=== PATIENT | female | born 1990 | race Caucasian/White ===

== ENCOUNTER 2017-05-06 12:26 | Inpatient (IN) | payer BC ==
[~2017-05-06 12:26] MED LIST: ADVIL200 MG; BENADRYL50 MG PO; DILAUDID2 MG PO; HYDROCODONE-IB1 EAC3 PO; IBUPROFEN600 MG PO; LEVSIN/ANASP0.125 MG PO; MACROBID100 MG PO; MOTRIN600 MG PEG; NORCO 10/325 TA1 TA1 PO; PERCOCET 10/3251 TA1 PO; PERCOCET 5/3251 TA1 PO; PHENERGAN25 M1 PO; PRENATAL COMPLE1 TAB PO; PROCARDIA10 MG PO; PROTONIX40 MG PO; REGLAN10 MG PO; SEASONALE1 BLIST PA PO; VALIUM5 MG PO; VENTOLIN HFA18 GM INH
[2017-05-06] MEDS ORDERED: OXYCONTIN10 MG PO (12:42)
[2017-05-06] MEDS ORDERED: VALIUM5 MG PO (12:43)
[2017-05-06] MEDS ORDERED: VYVANSE40 MG PO (12:44)
--- NOTE | 2017-05-06 12:45 | NUR ---
PT REC'D TO FLOOR VIA WC. [id number]. RATING CURRENT PAIN IN HEAD AND ABD /10. WILL REASSESS. PT COMPLAINING OF NAUSEA. PT SKIN DRY. ASSESSMENT COMPLETED. DR. RALPH'S OFFICE CALLED REGARDING PAIN MEDICATION. BED LOW, CALL LIGTH IN REACH, DENIES NEEDS. CPOC.
--- NOTE | 2017-05-06 13:10 | NUR ---
DR. RALPH PAGED AGAIN REGARDING THE NEED FOR PAIN MEDICATION. MESSAGE LEFT.
[2017-05-06 13:56] LABS: BASOPHILS 0.2 % (0-2); EOSINOPHILS 0.2 % (0-7); HEMATOCRIT 41.6 % (36.0-48.0); HEMOGLOBIN 14.3 g/dL (12-16); MCH 31.8 pg (26.0-34.0); MCHC 34.4 g/dL (31.0-37.0); MCV 92.7 fL (80.0-100.0); MEAN PLATELET VOLUME 10.3 fL (7.4-10.4); MONOCYTES 4.4 % (2-11); NEUTROPHILS 64.2 % (40-80); PLATELET COUNT 202 10x3/uL (130-400); RBC 4.49 10x6/uL (4.00-5.40); RDW 11.6 % (11.5-14.5); WBC 5.7 10x3/uL (4.8-10.8)
--- NOTE | 2017-05-06 14:00 | NUR ---
DR. RALPH PAGED AGAIN REGARDING NEED FOR PAIN MEDICATION. X2 ATTMEPTS TO START IV BY MYSELF, X1 ATTEMPT BY RIKI COLEMAN, AND X1 ATTEMPT BY MARYAN BLOOD. WHO WAS SUCCESSFUL. IV SITED TO [address]
[2017-05-06 14:11] VITALS: BP 116/75; BMI 22.9
[2017-05-06 14:16] LABS: ALKALINE PHOSPHATASE 48 U/L (46-116); ALT (SGPT) 21 U/L (10-68); BILIRUBIN - TOTAL 0.49 mg/dL (0.2-1.3); CALC OSMOLALITY 276 mosm/kg (275-300); CALCIUM 9.4 mg/dL (8.5-10.1); CARBON DIOXIDE 25.5 mmol/L (21.0-32.0); CHLORIDE - SERUM 104 mmol/L (98-107); CREATININE - SERUM 0.7 mg/dL (0.6-1.3); GLUCOSE 77 mg/dL (74-106); POTASSIUM - SERUM 3.8 mmol/L (3.5-5.1); PROTEIN - SERUM 7.2 g/dL (6.4-8.2); SODIUM 140 mmol/L (136-145); UREA NITROGEN 11 mg/dL (7-18); eGFR NON AFRICAN AMERICAN > 90 mL/min (90-120)
--- NOTE | 2017-05-06 14:42 | NUR ---
DR. RALPH PAGED REGARDING NEED FOR PAIN MEDICATION. SPOKE WITH CLEO. STATED, "HE'S PUTTING THE ORDERS IN NOW."
--- NOTE | 2017-05-06 17:21 | NUR ---
MRI CALLED REGARDING WHEN CT SCAN WOULD BE. SPOKE WITH LION. STATED, "SHE IS NEXT IN MY PILE."
[2017-05-06 20:00] VITALS: BP 92/48
--- NOTE | 2017-05-06 20:14 | NUR ---
PATIENT RESTING IN BED WITH C/O 6/10 PAIN. ADMINISTERED MEDS PER ORDERS. ASSESSMENT COMPLETED. COLLECTED URINE SAMPLE. PATIENT DENIES OTHER NEEDS AT THIS TIME. BED IN LOWEST AND CALL LIGHT WITHIN REACH. ENCOURAGED THE PATIENT TO CALL IF SHE HAS NEEDS.
[2017-05-06 21:05] LABS: APPEARANCE CLEAR (CLEAR); BILIRUBIN NEGATIVE (NEGATIVE); COLOR YELLOW (YELLOW); GLUCOSE NEGATIVE (NEGATIVE); KETONE NEGATIVE (NEGATIVE); NITRITE NEGATIVE (NEGATIVE); PROTEIN NEGATIVE (NEGATIVE); UROBILINOGEN NORMAL (NORMAL)
[2017-05-07] VITALS: BP 96/53
--- NOTE | 2017-05-07 03:15 | NUR ---
PERFORMED PT'S LINE DRAW
[2017-05-07 04:00] VITALS: BP 93/54
[2017-05-07 06:06] LABS: BASOPHILS 0.2 % (0-2); EOSINOPHILS 0.2 % (0-7); HEMATOCRIT 39.7 % (36.0-48.0); HEMOGLOBIN 13.4 g/dL (12-16); IMMATURE GRANULOCYTES 0.2 % (0-5); MCH 31.7 pg (26.0-34.0); MCHC 33.8 g/dL (31.0-37.0); MCV 93.9 fL (80.0-100.0); MEAN PLATELET VOLUME 10.2 fL (7.4-10.4); MONOCYTES 7.2 % (2-11); NEUTROPHILS 45.2 % (40-80); PLATELET COUNT 179 10x3/uL (130-400); RBC 4.23 10x6/uL (4.00-5.40); RDW 11.9 % (11.5-14.5)
[2017-05-07 06:40] LABS: ALBUMIN 3.5 g/dL (3.4-5.0); ALKALINE PHOSPHATASE 40 U/L (46-116); ALT (SGPT) 24 U/L (10-68); CALC OSMOLALITY 278 mosm/kg (275-300); CALCIUM 8.8 mg/dL (8.5-10.1); CARBON DIOXIDE 26.8 mmol/L (21.0-32.0); CHLORIDE - SERUM 107 mmol/L (98-107); CREATININE - SERUM 0.8 mg/dL (0.6-1.3); GLUCOSE 72 mg/dL (74-106); POTASSIUM - SERUM 4.1 mmol/L (3.5-5.1); PROTEIN - SERUM 6.3 g/dL (6.4-8.2); SODIUM 141 mmol/L (136-145); UREA NITROGEN 11 mg/dL (7-18); eGFR NON AFRICAN AMERICAN 90 mL/min (90-120)
--- NOTE | 2017-05-07 07:59 | NUR ---
PPT SEEN AND ASSESSED. C/O PAIN TO ABDOMEN WITH DIARRHEA YESTERDAY AND VOMINTING BLOOD YESTERDAY-NONE DURING EVENING SHIFT. NPO CURRENTLY-TO GI LAB PER BED. CONSENTS SIGNED.
[2017-05-07 08:06] LABS: AMYLASE - SERUM 37 U/L (25-115); LIPASE 160 U/L (73-393)
[2017-05-07 08:53] VITALS: BP 105/54
--- NOTE | 2017-05-07 09:13 | NUR ---
PT RETURNED FROM GI LAB. VS 98.1 113/70 73 17 OXYGEN RA 100.. COMPLAINTS OF BELLY HURTING. CALL LIGHT IN REACH
[2017-05-07 12:17] VITALS: BP 99/59
--- NOTE | 2017-05-07 13:16 | NUR ---
PT REQUESTED PAIN MEDICATION AND JELLO AND POPSICLE. PAIN AT 7 BEHIND NECK AND LOWER ABDOMEN, ADMIN PRN PAIN MED. BED IN LOW POSITION CALL LIGHT IN REACH
[2017-05-07 14:54] VITALS: BMI 22.9
--- NOTE | 2017-05-07 15:51 | NUR ---
PT C/O NECK PAIN, STATED THAT NECK STARTS OUT SORE THEN MOVES UPFRONT CAUSING BURNING SENSATION FROM NECK TO TEMPLES CAUSING HEADACHE. PT INQUIRED ON CT OF HEAD AND NECK AREA. STATES DILAUDED HELPS FOR FIRST FEW HOURS AFTERWARDS PAIN COMES RIGHT BACK
[2017-05-07 17:12] VITALS: BP 79/46
--- NOTE | 2017-05-07 17:38 | NUR ---
CHECKED PT BP AFTER 1ST BOLUS, PT BP IS UP TO 105/69. STATED FEELS A LITTER BETTER. PT HAS ONLY VOIDED ONCE TODAY. ENCOURAGED PT TO DRINK MORE. ADMIN PRN PAIN MEDICATION
--- NOTE | 2017-05-07 19:30 | NUR ---
REC'D SITTING UP IN BED. ALERT AND ORIENTED X4. REPORTED PAIN 6/10. WILL ADMIN PAIN MEDS PRESCRIBED. NO DISTRESS NOTED. IS GOING TO HAVE CT SCAN TONIGHT. DENIED NEEDS AT THIS TIME. INSTRUCTED TO CALL IF NEEDED ANYTHING, VERBALIZED UNDERSTANDING. BED LOW, LOCKED, CALL LIGHT IN REACH.
[2017-05-07 20:00] VITALS: BP 102/65
--- NOTE | 2017-05-07 20:00 | NUR ---
PT SITTING UP IN BED. ALERT AND ORIENTED. NO DISTRESS NOTED. CALL LIGHT IN REACH.
--- NOTE | 2017-05-07 22:09 | NUR ---
WENT TO CT REC'D AND 20G TO RIGHT AC. LEFT HAND WAS HALF WAY OUT UNDERNEATH THE TAPE. STARTED COMPLAINING OF SORENESS TO THE LEFT HAND. MOVED FLUIDS OVER TO THE RIGHT AC AND DC'D THE LEFT HAND CATHETER WAS STILL INTACT. WILL CONT TO MONITOR.
[2017-05-08] VITALS: BP 91/57
--- NOTE | 2017-05-08 02:43 | NUR ---
BLOOD PRESSURE WAS 86/49 AT MIDNIGHT VITALS. BOLUSED HER 250ML OF NS AND BROUGHT BP TO 91/59 WILL CONT TO MONITOR.
[2017-05-08 04:00] VITALS: BP 94/53
[2017-05-08 04:53] LABS: HEMATOCRIT 38.1 % (36.0-48.0); HEMOGLOBIN 12.8 g/dL (12-16); MCH 31.6 pg (26.0-34.0); MCHC 33.6 g/dL (31.0-37.0); MCV 94.1 fL (80.0-100.0); MEAN PLATELET VOLUME 10.4 fL (7.4-10.4); PLATELET COUNT 170 10x3/uL (130-400); RBC 4.05 10x6/uL (4.00-5.40); RDW 11.8 % (11.5-14.5); WBC 4.2 10x3/uL (4.8-10.8)
[2017-05-08 05:00] LABS: CALC OSMOLALITY 285 mosm/kg (275-300); CALCIUM 8.3 mg/dL (8.5-10.1); CARBON DIOXIDE 24.9 mmol/L (21.0-32.0); CHLORIDE - SERUM 113 mmol/L (98-107); CREATININE - SERUM 0.8 mg/dL (0.6-1.3); GLUCOSE 78 mg/dL (74-106); POTASSIUM - SERUM 4.2 mmol/L (3.5-5.1); SODIUM 145 mmol/L (136-145); eGFR NON AFRICAN AMERICAN 90 mL/min (90-120)
[2017-05-08 05:02] LABS: UREA NITROGEN 7 mg/dL (7-18)
[2017-05-08 05:37] LABS: LYMPHOCYTES 54 % (15-50); MONOCYTES 4 % (2-11); NEUTROPHILS 38 % (40-80); PLATELET ESTIMATE DECREASED
--- NOTE | 2017-05-08 07:34 | NUR ---
AM ROUNDS- PT IN BED, DENIES ANY NEEDS AT THIS TIME. RESP EVEN AND UNLABORED, RT AC INFUSING NS AT 120CC/HR AND ZOFRAN DRIP AT 4.7CC/HR. BED LOW AND WHEELS LOCKED, BEDSIDE RAILS X2, PT A/O, CALL LIGHT IN REACH, NAD NOTED, WILL CONTINUE TO MONITOR.
--- NOTE | 2017-05-08 09:58 | NUR ---
ADMINISTERED 0.5MG OF DILAUDID FOR PAIN LEVEL OF 7/10. PT DENIES ANY OTHER NEEDS AT THIS TIME. CALL LIGHT IN REACH, NAD NOTED, WILL CONTINUE TO MONITOR.
--- NOTE | 2017-05-08 10:29 | NUR ---
PT OUT FOR A WALK WITH FAMILY, NAD NOTED.
[2017-05-08 12:08] VITALS: BP 110/71
--- NOTE | 2017-05-08 13:42 | NUR ---
ADMINISTERED 0.5MG OF DILAUDID FOR PAIN LEVEL OF 7/10. ALSO PROVIDED PT WITH CHICKEN BROTH AND JELLO. PT DENIES ANY OTHER NEEDS AT THIS TIME. CALL LIGHT IN TEACH, NAD NOTED, WILL CONTINUE TO MONITOR.
--- NOTE | 2017-05-08 15:30 | NUR ---
PT CONCERN THAT IV IS NOT WORKING ANYMORE. CHECKED IV, GOT BLOOD RETURN AND IV FLUSHED GOOD. PT DENIED ANY PAIN WHEN IV WAS FLUSHED. PT DENIES ANY NEEDS AT THIS TIME. CALL LIGHT IN REACH, NAD NOTED, WILL CONTINUE TO MONITOR.
[2017-05-08 16:23] VITALS: BP 111/64
--- NOTE | 2017-05-08 18:00 | NUR ---
ADMINISTERED 0.5MG OF DILAUDID FOR PAIN LEVEL OF 6/10. ALSO PROVIDED PT WITH ICE WATER. PT DENIES ANY OTHER NEEDS AT THIS TIME. CALL LIGHT IN REACH, NAD NOTED, WILL CONTINUE TO MONITOR.
--- NOTE | 2017-05-08 19:43 | NUR ---
PT IS LYING IN BED READING MAGAZINE, STATED PAIN IS STILL AT AN 8 AND MAINLY IN HER NECK AND BACK. WAS TOLD BY DR RALPH CT OF NECK CAME BACK OK NOW PENDING CT OF HEAD. PT STATED STILL HAVING DIARRHEA BUT NOT BAD YESTERDAY. PT BP IS BACK UP, WILL CONTINUE TO MONITOR. PT BED IN LOW POSITION CALL LIGHT IN REACH
[2017-05-08 20:00] VITALS: BP 103/68
--- NOTE | 2017-05-09 00:15 | NUR ---
PT C/O NECK PAIN STLL, ADMIN PAIN MED AT 2100 ADVISED NOT TIME YET BUT CAN ADMIN LEVASIN, PT STATED THAT REALLY HELPS, NO OTHER NEEDS AT THIS TIME. CONTINUE PLAN OF CARE
--- NOTE | 2017-05-09 04:35 | NUR ---
ASSESSED, PT IS AWAKE RESTING QUIET IN BED WITH NO COMPLAINTS AT THIS TIME. RESPIRATIONS EASY AND NO DISTRESS NOTED. THE BED IS LOW, RAILS UP X'S 2 WITH THE CALL LIGHT AT HAND.
[2017-05-09 08:18] VITALS: BP 114/65
--- NOTE | 2017-05-09 08:20 | NUR ---
AWAKE AND ALERT. ORIENTED X3. NO C/O AT THIS TIME. LUNGS ARE CLEAR BILATERALLY, NO COUGH NOTED. SKIN IS INTACT WITHOUT REDNESS. IV TO RIGHT AC IS PATENT WITHOUT REDNESS AT INSERTION SITE. NO C/O PAIN OR NAUSEA AT THIS TIME. DENIES NEEDS.
--- NOTE | 2017-05-09 10:45 | NUR ---
REQUESTED AND GIVEN O.5 MG DILAUDID SLOW IVP FOR C/O HEADACHE. OFF UNIT VIA WC FOR COLONOSCOPY.
--- NOTE | 2017-05-09 11:20 | NUR ---
CECCUM AT 1116.
--- NOTE | 2017-05-09 11:25 | NUR ---
BIOPSIES BLED BURNED WITH HOT BIOPSY FORCEPS.
--- NOTE | 2017-05-09 12:05 | NUR ---
RETURNED FROM COLONOSCOPY. ALERT AND ORIENTED. C/O SOME PAIN AND NAUSEA AT THIS TIME. FAMILY AT [facility].
[2017-05-09 12:15] VITALS: BP 116/74
--- NOTE | 2017-05-09 12:17 | NUR ---
Patient Name: ALENA AUGUST Admission Status: Elective Accout number: [id number] Admission Date: 05-07-2017 : 1990 Admission Diagnosis: Attending: HARJEET RALPH Current LOS: 2 Anticipated DC Date: Planned Disposition: Home Primary Insurance: BLUE CROSS [employer] BLUE PPO Discharge Planning Comments: CM met with patient and mom (Donna) to assess with discharge planning needs. Patient lives independently at home where she is independent. Her mom will be the one to take her home at discharge. Patient does not have any DME or HH needs at this time. She has 4 stairs to enter her home and she does not have any trouble with them. CM will continue to follow and assist as needed with discharge planning needs. PCP: Loree Stratton by isac Ambrose (mom) Elevator Examiner: Ly Whitney * Is the patient Alert and Oriented? Yes 0 * How many steps to enter\exit or inside your home? 4 0 * PCP [facility] 0 * [facility] 0 * Preadmission Environment Home with Family 0 * ADLs Independent 0 * Equipment None 0 * Community resources currently utilized None 0 * Additional services required to return to the preadmission environment? No 0 * Can the patient safely return to the preadmission environment? Yes 0 * Has this patient been hospitalized within the prior 30 days at any hospital? No 0 Grand Total: 0
--- NOTE | 2017-05-09 12:48 | NUR ---
NUTRITION F/U CHART REVIEWED. DIET ADVANCED TO REG. NOTE POSSIBLE DC. RD FOLLOWING
--- NOTE | 2017-05-09 13:30 | NUR ---
ATE ALL OF REGULAR LUNCH TRAY. NO C/O NAUSEA OR INCREASED PAIN AFTER EATING. WILL CONTINUE TO MONITOR. MOM AT BEDSIDE.
--- NOTE | 2017-05-09 14:45 | NUR ---
REQUESTED AND GIVEN 0.5MG DILAUDID SLOW IVP FOR C/O PAIN LEVEL 6. WILL MONITOR.
[2017-05-09] MEDS ORDERED: LEVSIN/ANASP0.125 MG SL (14:58)
[2017-05-09] MEDS ORDERED: PHENERGAN25 M1 PO (15:00)
--- NOTE | 2017-05-09 16:30 | NUR ---
DISCHARGED TO HOME WITH MOM AMBULATORY. DISCHARGE INSTRUCTIONS GIVEN BOTH VERBALLY AND WRITTEN . ALL QUESTIONS ANSWERED. PATIENT AND MOM VERBALIZED UNDERSTANDING OF SAME. NEEDED PRESCRIPTIONS ESCRIBED TO PHARMACY OF CHOICE. IV TO RIGHT AC D/C WITH CATHETER INTACT. DISCHARGED WITH ALL BELONGINGS.
== END 2017-05-09 16:30 | disposition home or self-care (01) | DRG 391 ==
LOC: D.MS 12:26 → OBSVTIME 12:26 → D.MS 12:26
PROVIDERS: Internal Medicine Gastroenterology; ADMIT Family Medicine
PROC: 0DB68ZX Excision of Stomach, Via Natural or Artificial Opening Endoscopic, Diagnostic (ICD-10-PCS; 2017-05-07)
PROC: 0DB38ZX Excision of Lower Esophagus, Via Natural or Artificial Opening Endoscopic, Diagnostic (ICD-10-PCS; 2017-05-07)
PROC: 0DB48ZX Excision of Esophagogastric Junction, Via Natural or Artificial Opening Endoscopic, Diagnostic (ICD-10-PCS; 2017-05-07)
PROC: 0DB98ZX Excision of Duodenum, Via Natural or Artificial Opening Endoscopic, Diagnostic (ICD-10-PCS; principal; 2017-05-07 08:00)
PROC: 0DBN8ZZ Excision of Sigmoid Colon, Via Natural or Artificial Opening Endoscopic (ICD-10-PCS; 2017-05-09)
DX: K58.8 Other irritable bowel syndrome (principal); K29.71 Gastritis, unspecified, with bleeding; K21.0 Gastro-esophageal reflux disease with esophagitis; K29.80 Duodenitis without bleeding; K64.8 Other hemorrhoids; E86.0 Dehydration; F17.200 Nicotine dependence, unspecified, uncomplicated

== ENCOUNTER 2018-10-15 20:03 | Emergency (ER) | payer BC ==
[~2018-10-15] VITALS: Ht 167.6 cm; Wt 59.1 kg
[~2018-10-15 20:03] MED LIST changes: +LEVSIN/ANASP0.125 MG SL; +OXYCONTIN10 MG PO; +VYVANSE40 MG PO
[2018-10-15 20:15] VITALS: Ht 167.6 cm; Wt 59.1 kg
[2018-10-15] MEDS ORDERED: ELAVIL25 MG (20:17)
[2018-10-15 21:03] LABS: APPEARANCE CLOUDY (CLEAR); BILIRUBIN NEGATIVE (NEGATIVE); COLOR STRAW (YELLOW); GLUCOSE NEGATIVE (NEGATIVE); KETONE NEGATIVE (NEGATIVE); NITRITE NEGATIVE (NEGATIVE); PROTEIN NEGATIVE (NEGATIVE); UROBILINOGEN NORMAL (NORMAL)
[2018-10-15] MEDS ORDERED: TORADOL10 MG PO (21:37)
[2018-10-15 22:49] VITALS: BP 117/80
== END 2018-10-15 22:20 | disposition home or self-care (01) ==
LOC: D.ER 20:03
PROVIDERS: Emergency Medicine
DX: N80.9 Endometriosis, unspecified (principal); R10.2 Pelvic and perineal pain; F17.210 Nicotine dependence, cigarettes, uncomplicated; F41.9 Anxiety disorder, unspecified; L40.9 Psoriasis, unspecified

== ENCOUNTER → 2018-11-04 17:13 | Outpatient (CLI) | payer BC ==
[2018-10-15 20:15] VITALS: BMI 21.0
[~2018-11-04 17:13] MED LIST changes: +ELAVIL25 MG; +TORADOL10 MG PO
== END | disposition home or self-care (01) ==
LOC: D.LABREF 17:13
PROVIDERS: ATTEND Urology
DX: R31.9 Hematuria, unspecified (principal)

== ENCOUNTER 2018-11-12 07:06 | Day surgery (SDC) | payer BC ==
[~2018-11-12] VITALS: Ht 162.6 cm; Wt 58.5 kg
[2018-11-12 07:22] LABS: BASOPHILS 0.3 % (0-2); EOSINOPHILS 0 % (0-7); HEMATOCRIT 42.6 % (36.0-48.0); HEMOGLOBIN 14.7 g/dL (12-16); LYMPHOCYTES 28.3 % (15-50); MCH 31.5 pg (26.0-34.0); MCHC 34.5 g/dL (31.0-37.0); MCV 91.2 fL (80.0-100.0); MONOCYTES 7.2 % (2-11); NEUTROPHILS 64.2 % (40-80); PLATELET COUNT 196 10x3/uL (130-400); RBC 4.67 10x6/uL (4.00-5.40); RDW 12.3 % (11.5-14.5); WBC 6.1 10x3/uL (4.8-10.8)
[2018-11-12 07:35] LABS: APTT 29.7 SECONDS (22.8-39.4); INR 1.05 (0.85-1.17); PROTIME 13.2 SECONDS (11.6-15.0)
[2018-11-12 08:35] VITALS: BP 108/62; Ht 162.6 cm; Wt 58.5 kg
--- NOTE | 2018-11-12 11:52 | NUR ---
1142-RECD FROM OR/CYSTO WITH RIMSO. ALERT. CRYING IT STINGS. ENOURAGED TO ROLL HIPS TO DISTRIBUTE RIMSO AND HOLD URINE X 5 MORE MINUTES. 1147-UP TO BATHROOM, VOIDS. 1152-DR BRUNSON IN TO SEE PATIENT. FULL LIQUIDS SERVED.
--- NOTE | 2018-11-12 12:25 | NUR ---
TOLERATED FL DIET. UP TO BATHROOM SEVERAL TIMES. IV DC'D WITH CATHETER INTACT. WRITTEN AND VERBAL DC INST. GIVEN TO PT. VERBALIZED UNDERSTANDING.
--- NOTE | 2018-11-12 12:35 | NUR ---
DC'D HOME WITH FAMILY VIA PRIVATE VEHICLE. TAKEN TO VEHICLE VIA WC. STABLE AT TIME OF DC.
--- NOTE | 2018-11-12 16:08 | OP ---
PATIENT NAME: ALENA AUGUST MEDICAL RECORD: [id number] :[birth year] LOCATION:[facility] ADMISSION DATE: SURGEON: BRIAN BRUNSON MD DATE OF OPERATION: 11/12/2018 SURGEON: Brian Brunson MD ANESTHESIA: TIVA by Alejandro Karimi CRNA DIAGNOSES: Interstitial cystitis, microscopic hematuria. PROCEDURES: Cystoscopy, hydrodistention of the bladder, intravesical Rimso instillation. FINDINGS: On cystoscopy, single ureteral orifices. No bladder tumors were seen. There was diffuse bladder inflammation with glomerulations. BLOOD LOSS: None. CLINICAL HISTORY: This is a 28-year-old female who has chronic cystitis symptoms with pelvic pain for the past 4-6 years. Her urinalysis in the office showed trace blood and I sent the urine for culture as well as cytology. They did not show anything significant. She is a one pack per week smoker. She has occasional urinary urgency and frequency and she has nocturia times 3. There is also suprapubic and right lower abdominal quadrant pain. The pain can radiate to the lower back and vaginal area. Dyspareunia is present. Her symptoms are highly suggestive of interstitial cystitis. She comes today for cystoscopy. If bladder inflammation is seen, then we will give her hydrodistention of the bladder and intravesical Rimso instillation. SHE IS ALLERGIC TO CORTICOSTEROIDS. She was given Ancef 1 gram IV on-call to the OR. DESCRIPTION OF PROCEDURE: The patient was given IV sedation. She was then placed into dorsal lithotomy position and prepped and draped. A 17-Dominican cystoscope with 30-degree lens was used for visualization. Findings are as outlined above. I filled the bladder to about 500 mL for hydrodistention. The volume was kept in place for about 2 minutes. She had a lot of wriggling around from discomfort even under sedation. The bladder was then emptied through the scope sheath and the scope was removed. A 16-Dominican red rubber catheter was then used to instill 50 mL of Rimso solution into the bladder. The catheter was then removed, leaving the solution in the bladder. The patient will be seen in 2 weeks' time to see how well she responded to this treatment. TRANSINT:[id number] Voice Confirmation ID: [id number] DOCUMENT ID: [id number] BRIAN BRUNSON MD at 1608 CC: [id number] DICTATION DATE: 11/12/18 1143 UTILITY INSPECTOR: 11/12/[address] [facility] 11/12/18 [place] [id number] [place] [address]
== END 2018-11-12 12:35 | disposition home or self-care (01) ==
LOC: D.PAN 07:06 → D.OPS 12:45
PROVIDERS: Anesthesiology; ATTEND Urology
DX: N30.11 Interstitial cystitis (chronic) with hematuria (principal); R31.29 Other microscopic hematuria; Z01.812 Encounter for preprocedural laboratory examination